=== PATIENT | female | born 1960 | race Caucasian/White ===

== ENCOUNTER → 2016-10-08 | Outpatient (CLI) | payer OTHER ==
--- NOTE | 2016-10-10 13:18 | MAM ---
History: Well woman exam. Date of exam: 10/08/2016 Services provided: Bilateral full field digital screening mammography. CAD, the images were reviewed with R2 computer aided detection. FINDINGS: Glandular tissue is near completely fatty involuted. Comparison with 2011 study. No dominant mass, architectural distortion or clustered microcalcification. IMPRESSION: Benign exam Recommendation: Routine annual mammography BIRAD CATEGORY: 2 BENIGN Electronically signed by: María Terrell MD 10/10/2016 1:16 PM CDT Workstation: [email or web address]
== END ==
LOC: MAMMO 14:20
PROVIDERS: ATTEND Obstetrics & Gynecology
DX: Z12.31 Encounter for screening mammogram for malignant neoplasm of breast (principal)

== ENCOUNTER → 2017-04-30 | Outpatient (CLI) | payer OTHER | LOC: RESP 14:24 | PROVIDERS: ATTEND Obstetrics & Gynecology | DX: J44.9 Chronic obstructive pulmonary disease, unspecified (principal) ==